=== PATIENT | female | born 1990 | race African-American/Black ===

== ENCOUNTER 2019-07-20 16:39 | Emergency (ER) | payer SELFPAY ==
[2019-07-20] MEDS ORDERED: Ondansetron PF 4 MG/2 ML Vial ONE (17:46)
[2019-07-20] MEDS ORDERED: Morphine 4 MG/ML VIAL ONE (17:46)
[2019-07-20 17:55] LABS: #Basophils 0.1 thou/uL (0.0-0.2); #Lymphocytes 1.1 thou/uL (1.20-3.40); #Monocytes 0.3 thou/uL (0.11-0.59); #Neutrophils 7.3 thou/uL (1.40-6.50); %Basophils 0.6 % (0.0-1.0); %Eosinophils 0.3 % (0.0-10.0); %Lymphocytes 12.6 % (21.0-51.0); %Monocytes 3.5 % (0.0-10.0); %Neutrophils 83.1 % (42.0-75.0); Hemoglobin 9.2 g/dL (12.0-16.0); Mean Corpuscular Hemoglobin 24.2 pg (27.0-31.0); Mean Corpuscular Volume 71.3 fL (78.0-98.0); Mean Platelet Volume 10.1 fL (7.4-10.4); Platelet Count 238 thou/uL (130-400); RBC Distribution Width 15.4 % (11.5-14.5); White Blood Cell (WBC) Count 8.8 thou/uL (4.8-10.8)
[2019-07-20 18:02] LABS: INR-International Normal Ratio 1.1; PTT 23.5 SEC (22.9-36.1); Prothrombin Time 13.7 SEC (12.0-14.7)
[2019-07-20 18:05] LABS: BHCG - Serum Negative (NEGATIVE); Pregs Control Background? CLEAR/WHITE (CLR/WHITE); Pregs Control Bar Appear? YES (CONTROL BAR)
[2019-07-20 18:09] LABS: Bacteria/HPF None Seen HPF (None Seen); Bilirubin Negative (Negative); Blood, Urine Negative (Negative); Clarity Clear (Clear); Glucose, Urine (Dipstick) Normal (Negative); Leukocyte 25 Leu/uL (Negative); Mucous/LPF Rare LPF (<2+); Nitrite Negative (Negative); Protein, Urine (Dipstick) 20 mg/dL (Neg-Trace); RBC/HPF 0-3 HPF (0-3); Squamous Epithelial 0-3 HPF (0-3); Urobilinogen Normal mg/dL (Less than 2)
[2019-07-20 18:20] LABS: Anisocytosis SLIGHT = 6-15 cells (100X) (0-5/hpf); Hypochromia SLIGHT = 6-15 cells (100X) (0-5/hpf); MDiff Complete? YES; Microcytosis SLIGHT = 6-15 cells (100X) (0-5/hpf); Platelet Morphology Comment Appears Adequate; Polychromasia SLIGHT = 2-3 cells (100X) (0-2/hpf)
[2019-07-20 18:22] LABS: ALT (SGPT) 12 U/L (8-55); AST (SGOT) 13 U/L (5-34); Alkaline Phosphatase 83 U/L (40-110); Anion Gap 11 mmol/L (10-20); BUN (Urea Nitrogen) 7 mg/dL (7.0-18.7); Bilirubin, Total 0.3 mg/dL (0.2-1.2); Calc. Creatinine Clearance 0 mL/min (70-130); Calcium 8.7 mg/dL (7.8-10.44); Carbon Dioxide 24 mmol/L (22-29); Chloride 106 mmol/L (98-107); Estimated GFR-MDRD Greater than 90; Glucose 186 mg/dL (70-105); Lipase 11 U/L (8-78); Potassium 3.2 mmol/L (3.5-5.1); Sodium 138 mmol/L (136-145)
--- NOTE | 2019-07-20 19:09 | ULT ---
ULTRASOUND PELVIC ULTRASOUND TRANSVAGINAL DOPPLER DUPLEX: DATE: 07/20/2019 HISTORY: 29-year-old female with menorrhagia TECHNIQUE: Transabdominal transducer and endovaginal transducer used to visualize intrapelvic contents with díaz scale, color-flow, and spectral analysis. FINDINGS: Uterus: 8.5 x 5 x 5.5 cm. Endometrial stripe: 0.6 cm (6 mm) at the uterine fundus and hyperechoic. At lower uterine segment, endometrial stripe is also hyperechoic, and measures approximately 0.9 cm ( 9 mm) and has irregular margins. Perhaps this represents blood clots. Right ovary: Not visualized. Left ovary: 2.5 x 2 x 2.5 cm with multiple follicles. Blood flow demonstrated in left ovary. No free fluid in the cul-de-sac. IMPRESSION: 1) hyperechoic, irregular thickening of endometrial stripe at lower uterine segment. Nonspecific, but could represent blood clots. 2.) Right ovary not visualized.
== END 2019-07-20 20:10 | disposition home or self-care (01) ==
LOC: ERS 16:39
DX: N93.8 Other specified abnormal uterine and vaginal bleeding (principal); D50.9 Iron deficiency anemia, unspecified; E28.2 Polycystic ovarian syndrome; R11.2 Nausea with vomiting, unspecified
CPT/HCPCS: 36415; 51701; 76856; 80053; 81003; 81015; 83690; 84703; 85025; 85610; 85730; 86850; 86900; 86901; 96374; 96375; A4353; J2270; J2405